=== PATIENT | male | born 1945 | race Caucasian/White ===

== ENCOUNTER → 2016-12-06 | Outpatient (CLI) | payer OTHER, MEDICARE | LOC: FIMAGING 06:56 | PROVIDERS: ATTEND Internal Medicine | DX: M48.07 Spinal stenosis, lumbosacral region (principal) ==

== ENCOUNTER → 2016-12-30 | Outpatient (CLI) | payer OTHER, MEDICARE ==
[~2016-12-30] MED LIST: GADOBUTROL 10 ML VIAL IVP ONE
== END ==
LOC: FIMAGING 06:54
PROVIDERS: ATTEND Physician Assistant Medical
DX: H91.8X1 Other specified hearing loss, right ear (principal)
CPT/HCPCS: 70553; A9585